=== PATIENT | female | born 1975 | race Caucasian/White ===

== ENCOUNTER → 2017-10-04 | Outpatient (CLI) | payer OTHER ==
[~2017-10-04] MED LIST: CETI-176 PO; CYCL10TA29 PO; LORA10CA3 PO; PREN-67 PO; SERT-181 PO
--- NOTE | 2017-10-08 06:30 | RT HOLTER TEST ---
FACILITY: [facility] [place] PATIENT NAME: WYATT LUNA : [id number] MR: [id number] V: [id number] EXAM DATE: ORDERING PHYSICIAN: RINA HODGSON TECHNOLOGIST: Arina date: 2017-10-04 13:16:00 Duration: 23:58:00 Test Indications: Medications: 04929 QRS complexes 6 Ventricular ectopics which represent <1 % of total QRS comp. 12 Supraventricular ectopics which represent <1 % of total QRS comp. * Paced QRS complexes which represent % of total QRS comp. VENTRICULAR ECTOPY 6 Isolated 0 Bigeminal Cycles 0 Couplets 0 Runs 0 Beats in Runs * Beats LONGEST at * BPM at :: -- * Beats FASTEST at * BPM at :: -- SUPRAVENTRICULAR ECTOPY 12 Isolated 0 Couplets 0 Runs 0 Beats in Runs * Beats LONGEST at * BPM at :: -- * Beats FASTEST at * BPM at :: -- HEART RATES 35 MIN at 23:18:27 2017-10-04 59 AVG 150 MAX at 08:47:26 2017-10-05 LONGEST RR 1.920 secs at 23:19:27 2017-10-04 S-T LEVELS Channel 1 -12.800 mm MIN at 13:16:00 2017-10-04 -12.800 mm MAX at 13:16:00 2017-10-04 Channel 2 -12.800 mm MIN at 13:16:00 2017-10-04 -12.800 mm MAX at 13:16:00 2017-10-04 Channel 3 -12.800 mm MIN at 13:16:00 2017-10-04 -12.800 mm MAX at 13:16:00 2017-10-04 Frequent supraventricular ectopy with what appears to be several episodes of an ectopic atrial focus. Rare ventricular ectopy. No couplets, triplets, or runs. Frequent episodes of sinus bradycardia with rates as low as 35bpm. No pauses of more than two seconds were recorded, but several were very close. Confirmed by NACHO ZAPATA ([id number]) on 10/08/2017 6:30:10 AM Referred By: Overread By: NACHO ZAPATA
== END ==
LOC: RESP 03:22
PROVIDERS: ATTEND Internal Medicine Cardiovascular Disease
DX: I49.3 Ventricular premature depolarization (principal)
CPT/HCPCS: 93225; 93226

== ENCOUNTER 2017-10-30 00:43 | Day surgery (SDC) | payer OTHER ==
[~2017-10-30] VITALS: Ht 175.3 cm; Wt 73.0 kg
[~2017-10-30 00:43] MED LIST changes: +MELA3TAB31 PO
[2017-10-30] MEDS ORDERED: ONDANSETRON 4 MG/2 ML VIAL ONE (08:55)
[2017-10-30] MEDS ORDERED: PROPOFOL EMUL(*) 10MG/ML 20 ML 20 ML ONE (08:55)
[2017-10-30] MEDS ORDERED: DEXAMETHASONE SOD 4 MG/ML VIAL ONE (08:55)
[2017-10-30] MEDS ORDERED: METOCLOPRAMIDE 10 MG/2 ML SDV ONE (08:55)
[2017-10-30] MEDS ORDERED: LIDOCAINE MPF 1% 5 ML VIAL ONE (08:55)
[2017-10-30] MEDS ORDERED: fentaNYL CITR 100 MCG/2 ML AMP ONE (09:03)
[2017-10-30] MEDS ORDERED: LIDOCAINE/SOD BICARB 8.4% SYR ID ONE (09:05)
[2017-10-30] MEDS ORDERED: MIDAZOLAM 2 MG/2 ML VIAL IVP PRN (09:05)
[2017-10-30] MEDS ORDERED: NORMOSOL R SOLN(*) 1000 ML BAG 1,000 ML IV PRN (09:05)
[2017-10-30] MEDS ORDERED: FAMOTIDINE 20 MG TAB PO ONE (09:05)
[2017-10-30] MEDS ORDERED: SCOPOLAMINE 1.5 MG PATCH TD ONE (10:10)
[2017-10-30 10:39] VITALS: BP 134/83
[2017-10-30] MEDS ORDERED: KETOROLAC 30 MG/ML VIAL ONE (11:58)
[2017-10-30] MEDS ORDERED: LR(*) 1000 ML BAG 1,000 ML IV ONE (12:08)
--- NOTE | 2017-10-30 12:08 | Post Operative Note ---
Operative Note - [facility] Operative Day Date: Oct 30, 2017 Time: 12:07 Physicians Surgeon: Carlota Anesthesia: General, [place] Diagnosis Pre-Op Diagnosis: retained IUD, Desire for long acting contraception Post-Op Diagnosis: Same Procedure Procedure(s): Hscope IUD removal Mirena insertion Fluids Fluids: IVF: 1000cc Estimated Blood Loss: Minimal TONY PAUL MD Oct 30, 2017 12:07
[2017-10-30] MEDS ORDERED: METOCLOPRAMIDE 10 MG/2 ML SDV IVP PRN (12:10)
[2017-10-30] MEDS ORDERED: IBUP800T37 PO (12:11)
[2017-10-30] MEDS ORDERED: LOR5/325 PO (12:11)
--- NOTE | 2017-10-30 12:14 | Short(Outpt) Discharge Summary ---
Discharge Summary Reason for Hosp/Final Diag: (1) Status post hysteroscopy Departure Discharge to: Home, Self Care Discharge Instructions Home Meds Active Scripts Hydrocodone Bit/Acetaminophen (HYDROCODON-ACETAMINOPHEN 5-325) 1 Each Tablet, 1 EACH PO Q4-6H PRN for pain, #10 TAB 0 Refills Prov:TONY PAUL MD 10/30/17 Reported Medications Melatonin (MELATONIN) 3 Mg Tablet, 3 MG PO HS 10/18/17 Cetirizine Hcl (ZYRTEC) 10 Mg Tablet, 1 TAB PO HS, TAB 09/13/17 Sertraline Hcl (SERTRALINE HCL) Unknown Strength Tablet, 50 MG PO HS, TAB 09/13/17 Follow up Referrals: [facility] - In Three Weeks @ [facility] [place] with TONY PAUL MD Diet: Regular Activity: As Tolerated TONY PAUL MD Oct 30, 2017 12:14
[2017-10-30 13:00] VITALS: BP 109/74
[2017-10-30 13:06] VITALS: BP 115/76
[2017-10-30 13:07] VITALS: BP 116/73
--- NOTE | 2017-10-30 14:26 | OPERATIVE REPORT 1 ---
EVENT DATE: October 30, 2017 SURGEON: Zamzam Van MD ANESTHESIOLOGIST: Reed Villasenor MD ANESTHESIA: General. PREOPERATIVE DIAGNOSES 1. retained intrauterine device. 2. Desire for long-acting contraception. POSTOPERATIVE DIAGNOSES 1. retained intrauterine device. 2. Desire for long-acting contraception. PROCEDURE PERFORMED 1. Hysteroscopic Mirena intrauterine device removal. 2. Mirena insertion. INTRAVENOUS FLUIDS 1000 mL ESTIMATED BLOOD LOSS Minimal. INDICATIONS FOR PROCEDURE This patient is a 42-year-old, 2, para 2, who presented to clinic for an IUD removal in the setting of strings not visible on exam. An ultrasound did confirm appropriate placement of the intrauterine device. There was an attempt made in an outpatient setting to remove the IUD, but this was unsuccessful. She, therefore, was consented for a hysteroscopic IUD removal and desires replacement of her Mirena IUD. She is, therefore, admitted for the same. DESCRIPTION OF PROCEDURE The patient was properly identified and taken to the operating room. She was placed under general anesthesia and then placed in the dorsal lithotomy position and prepped and draped in the usual fashion for vaginal surgery. A speculum was placed to visualize the cervix, which was multiparous and without lesion. The cervix was then grasped with an Allis clamp on the anterior lip. Gentle traction was applied and a finder was utilized to navigate the cervix. The cervix was then serially dilated to 5 mm using Hegar dilators. Once this was achieved, the hysteroscope was assembled and primed. The hysteroscope was then introduced under direct visualization. The IUD was noted to be intrauterine, and the strings were wrapped up around the stem of the IUD. The strings were grasped with the hysteroscopic grasper, and with gentle traction, the entire IUD apparatus was removed without difficulty. The hysteroscope was then replaced to visualize the endometrial cavity, which was normal in appearance. The new Mirena IUD was then prepared and assembled. The IUD was then introduced to the fundus and released. Prior to trimming the strings, the hysteroscope was then introduced, which confirmed intrauterine location of the IUD was appropriate. Therefore, the hysteroscope was removed. Strings were trimmed to 3 cm to allow for possible settling of the IUD without the need for future surgery. The Allis clamp was removed as well as the speculum. The patient tolerated this procedure well and recovered in the post-anesthesia care unit. All sponge counts were correct at the end of this procedure. SARI
[2017-10-30] MEDS ORDERED: IBUPROFEN 800 MG TAB PO SCH (17:00)
== END 2017-10-30 13:00 | disposition home or self-care (01) ==
LOC: OR 00:43
PROVIDERS: ATTEND Obstetrics & Gynecology
DX: Z30.432 Encounter for removal of intrauterine contraceptive device (principal)
CPT/HCPCS: 36415; 58300; 84703; J1100; J1885; J2001; J2405; J2704; J2765; J3010